=== PATIENT | female | born 1940 | race Caucasian/White ===

== ENCOUNTER 2017-12-30 07:11 | Outpatient (CLI) | payer MEDICARE, OTHER | END 2017-12-30 07:12 | disposition critical access hospital (66) | LOC: EMS 07:11 | PROVIDERS: ATTEND Surgery | DX: R07.89 Other chest pain (principal) | CPT/HCPCS: A0425; A0429 ==

== ENCOUNTER 2017-12-30 07:37 | Emergency (ER) | payer MEDICARE, OTHER ==
[2017-12-30] MEDS ORDERED: ASPIRIN CHEW 81 MG TABLET PO STA (07:43)
[2017-12-30] MEDS ORDERED: ACETAMINOPHEN 1,000 MG/100 ML 100 ML IV STA (07:43)
--- NOTE | 2017-12-30 07:46 | ED Physician Documentation ---
History of Present Illness - Stated complaint Stated Complaint: CHEST PAIN - Chief complaint Chief Complaint: Cardiac - Additonal information Additional information: hx from pt and EMS 77 f hx vascular dz and HLD no CAD HTN DM fh CAD to ED BIBA for CP X 2 days pain constant pressure and sharp ant chest rad ant neck worse with breathing no fever no cough no NV no diap[place]is [place] 3 [place] no leg swelling Review of Systems Constitutional: denies: Fever, Chills, Sweats Cardiac: reports: Chest pain / pressure Respiratory: denies: Dyspnea, Cough GI: denies: Abdominal Pain, Nausea, Vomiting Musculoskeletal: denies: Extremity swelling Endocrine: denies: Easy bruising / bleeding Immunocompromised: denies: Immunocompromised PD PAST MEDICAL HISTORY - Present Medications Home Medications: Ambulatory Orders Medication Instructions Recorded Confirmed Aspirin [Aspirin EC] 12/30/17 Atorvastatin [Lipitor] 12/30/17 Levothyroxine [Synthroid] 12/30/17 Lisinopril 12/30/17 Sucralfate 1 gm PO ACHS #120 tablet 12/30/17 raNITIdine [Zantac] 150 mg PO BID #60 tablet 12/30/17 - Allergies Allergies/Adverse Reactions: Allergies Allergy/AdvReac Type Severity Reaction Status Date / Time No Known Drug Allergies Allergy Verified 12/30/17 07:43 PD ED PE NORMAL - Vitals Vital signs reviewed: Yes - Neck Neck: Supple, no meningeal sign - Cardiac Cardiac: RRR - Respiratory Respiratory: No respiratory distress - Abdomen Abdomen: Soft, Non tender - Derm Derm: Normal color - Extremities Extremities: No edema, No calf tenderness / cord - Neuro Neuro: Alert and oriented X 3 Results - Vitals Vitals: Vital Signs - 24 hr 12/30/17 12/30/17 12/30/17 07:38 08:15 08:45 Temperature 37.1 C Heart Rate 77 71 72 Respiratory 16 15 18 Rate Blood Pressure 135/43 H 125/45 L 117/44 L O2 Saturation 96 96 94 12/30/17 09:53 Temperature Heart Rate 73 Respiratory 17 Rate Blood Pressure 113/48 L O2 Saturation 94 Oxygen O2 Source Room air - EKG (time done) 0742 Rate: Rate (enter#) (75) Rhythm: NSR Intervals: Normal VA Ischemia: Normal ST segments - Labs Labs: Laboratory Tests 12/30/17 12/30/17 12/30/17 07:51 07:51 07:51 WBC 9.7 RBC 3.51 L Hgb 10.9 L Hct 31.4 L MCV 89.6 MCH 31.2 H MCHC 34.8 RDW 12.7 Plt Count 390 MPV 7.4 L Neut # (Auto) 7.1 H Lymph # (Auto) 1.3 L [place] # (Auto) 1.1 H Eos # (Auto) 0.1 Baso # (Auto) 0.0 Absolute Nucleated RBC 0.00 Nucleated RBC % 0.0 D-Dimer 250.1 Sodium 130 L Potassium 4.3 Chloride 98 L Carbon Dioxide 24 Anion Gap 8.0 BUN 14 Creatinine 0.6 Estimated GFR (MDRD) 97 Glucose 125 H Calcium 9.1 Total Bilirubin 0.8 AST 72 H ALT 86 H Alkaline Phosphatase 268 H Troponin I Total Protein 7.7 Albumin 3.9 Globulin 3.8 Albumin/Globulin Ratio 1.0 Lipase 29 12/30/17 07:51 WBC RBC Hgb Hct MCV MCH MCHC RDW Plt Count MPV Neut # (Auto) Lymph # (Auto) [place] # (Auto) Eos # (Auto) Baso # (Auto) Absolute Nucleated RBC Nucleated RBC % D-Dimer Sodium Potassium Chloride Carbon Dioxide Anion Gap BUN Creatinine Estimated GFR (MDRD) Glucose Calcium Total Bilirubin AST ALT Alkaline Phosphatase Troponin I < 0.04 Total Protein Albumin Globulin Albumin/Globulin Ratio Lipase - Rads (name of study) CXR Radiology: See rad report (NACPD, nl mediastinum) ruq sono Radiology: See rad report (no acute) PD MEDICAL DECISION MAKING - ED course ED course: EKG and trop neg after 2 days of sx effectively rules out ACS nl mediastinum and no bakc pian makes dissection unlikely no leg swelling tachycardia tachypne or hypoxia and neg d dimer makes PE unlikely elev LFTs notes - will get RUQ sono - Sepsis Event Vital Signs: Vital Signs - 24 hr 12/30/17 12/30/17 12/30/17 07:38 08:15 08:45 Temperature 37.1 C Heart Rate 77 71 72 Respiratory 16 15 18 Rate Blood Pressure 135/43 H 125/45 L 117/44 L O2 Saturation 96 96 94 12/30/17 09:53 Temperature Heart Rate 73 Respiratory 17 Rate Blood Pressure 113/48 L O2 Saturation 94 Oxygen O2 Source Room air Departure - Departure Disposition: 01 Home, Self Care Clinical Impression: Chest pain Qualifiers: Chest pain type: unspecified Qualified Code(s): R07.9 - Chest pain, unspecified Condition: Good Instructions: ED Chest Pain Atypical Unkn Cause Prescriptions: raNITIdine [Zantac] 150 mg PO BID #60 tablet Sucralfate 1 gm PO ACHS #120 tablet Comments: All your tests were reassuring The EKG and blood work do not indicate a heart attack The exam and blood work do not indicate a blood clot in your lungs The xray does not show signs or an aneurysm or tear of your aorta. Some of your liver tests were elevated but the ultrasound did not show any gallstones - just a fatty liver - you should avoid alcohol and Tylenol and follow up with your PMD for further outpatient work up. Given the reassuring work up, I think it is safe for you to go home One possible cause of chest pain that does not show up on ER testing is acid reflux - so I suggest a trial of zantac and carafate Please follow up with your regular doctor Return if worse
[2017-12-30 08:08] LABS: ALBUMIN 3.9 g/dL (3.2-5.5); BILIRUBIN,TOTAL 0.8 mg/dL (0.2-1.0); CALCIUM 9.1 mg/dL (8.5-10.3); CREATININE 0.6 mg/dL (0.4-1.0); TOTAL PROTEIN 7.7 g/dL (6.7-8.2)
[2017-12-30 08:12] LABS: BASOPHILS % (AUTO) 0.3 %; EOSINOPHILS # (AUTO) 0.1 10^3/uL (0.0-0.7); EOSINOPHILS % (AUTO) 0.6 %; HGB - HEMOGLOBIN 10.9 g/dL (12.0-16.0); LYMPHOCYTES # (AUTO) 1.3 10^3/uL (1.5-3.5); LYMPHOCYTES % (AUTO) 13.8 %; MEAN CORPUSCULAR HEMOGLOBIN 31.2 pg (27.0-31.0); MEAN CORPUSCULAR HGB CONC 34.8 g/dL (32.0-36.0); MEAN CORPUSCULAR VOLUME 89.6 fL (81.0-99.0); MEAN PLATELET VOLUME 7.4 fL (7.9-10.8); MONOCYTES # (AUTO) 1.1 10^3/uL (0.0-1.0); MONOCYTES % (AUTO) 11.7 %; NEUTROPHILS # (AUTO) 7.1 10^3/uL (1.5-6.6); NEUTROPHILS % (AUTO) 73.6 %; PLT - PLATELET COUNT 390 10^3/uL (130-450); RED BLOOD COUNT 3.51 10^6/uL (4.20-5.40); RED CELL DISTRIBUTION WIDTH 12.7 % (12.0-15.0); WHITE BLOOD COUNT 9.7 x10^3/uL (4.8-10.8)
--- NOTE | 2017-12-30 08:20 | XRAY Report ---
Reason: CHEST PAIN Procedure Date: 12/30/2017 Accession Number: [id number] / [id number] Procedure: XR - Chest 2 View X-Ray CPT Code: 26570 FULL RESULT: EXAM: CHEST RADIOGRAPHY EXAM DATE: 12/30/2017 08:06 AM. CLINICAL HISTORY: CHEST PAIN. COMPARISON: None. TECHNIQUE: 2 views. FINDINGS: Lungs/Pleura: No focal consolidation evident. No pleural effusion. No pneumothorax. Mild elevation of the left hemidiaphragm; overall normal volumes. Mediastinum: Heart and mediastinal contours are unremarkable. Other: None. IMPRESSION: No radiographically apparent acute abnormality in the chest. RADIA
--- NOTE | 2017-12-30 09:55 | Ultrasound Report ---
Reason: CP elevated LFTs Procedure Date: 12/30/2017 Accession Number: [id number] / [id number] Procedure: US - Abdomen Limited CPT Code: FULL RESULT: EXAM: ABDOMEN ULTRASOUND LIMITED, RUQ EXAM DATE: 12/30/2017 09:02 AM. CLINICAL HISTORY: Elevated liver function test. COMPARISON: None. TECHNIQUE: Real-time scanning was performed with static images obtained. FINDINGS: Liver: The liver is heterogeneously echogenic in appearance suggesting fibrofatty infiltration. No suspicious lesions or masses are identified. The liver measures 15.2 cm. Main portal vein flow: Hepatopetal. Gallbladder: Normal. No stones, wall thickening, or sonographic Hart's sign. Biliary System: CBD measures 3 mm. No intrahepatic or extrahepatic ductal dilatation. Other: None. IMPRESSION: No acute findings. Heterogeneous fatty change of the liver is seen. RADIA
[2017-12-30 12:31] VITALS: BP 127/68
== END 2017-12-30 12:31 | disposition home or self-care (01) ==
LOC: ED 07:37
DX: R07.9 Chest pain, unspecified (principal); E78.5 Hyperlipidemia, unspecified; Z79.82 Long term (current) use of aspirin
CPT/HCPCS: 36415; 71046; 76705; 80053; 83690; 84484; 85025; 85379; 93005; 96365; 99283; 99284; J0131